=== PATIENT | female | born 1990 | race Caucasian/White ===

== ENCOUNTER 2017-04-14 12:58 | Emergency (ER) | payer OTHER ==
[~2017-04-14] VITALS: Ht 154.9 cm; Wt 59.0 kg
[~2017-04-14 12:58] MED LIST: IBUPROFEN200 M2 PO; NOHOMEMEDICATIONS; TRINATE TABLET1 TAB PO
[2017-04-14 14:10] LABS: ABSOLUTE NEUTROPHILS 6.2 thou/uL (1.4-8.2); BASOPHILS 0.6 % (0.0-2.0); EOSINOPHILS 1.3 % (0.0-3.0); HEMATOCRIT 43.1 % (37.0-47.0); HEMOGLOBIN 14.7 gm/dL (12.0-15.0); LYMPHOCYTES 23.6 % (24.0-44.0); MCV 85.2 fL (80.0-100.0); MONOCYTES 4.8 % (1.0-8.0); PLATELET COUNT 267 thou/uL (150-400); POLYS 69.7 % (36.0-66.0); RBC 5.06 mil/uL (4.20-5.00); RDW 13.6 % (10.5-14.5); WBC 8.8 thou/uL (4.0-11.0)
[2017-04-14 14:12] LABS: MANUAL DIFF NO
[2017-04-14 14:18] LABS: URINE BILIRUBIN NEGATIVE (Negative); URINE BLOOD 2+ (Negative); URINE COLOR YELLOW; URINE GLUCOSE-RANDOM* NEGATIVE (Negative); URINE KETONES NEGATIVE (Negative); URINE NITRITE NEGATIVE (Negative); URINE PROTEIN (DIPSTICK) NEGATIVE (Negative); URINE SPECIFIC GRAVITY <= 1.005 (1.003-1.035); URINE UROBILINOGEN 0.2 E.U./dl (0.2-1.0)
[2017-04-14 14:28] LABS: CASTS None Seen /LPF (None Seen); SQUAMOUS >10 Many /LPF (0-3); URINE RBC 0-2 Rare /HPF (0-2); URINE WBC 0-5 Rare /HPF (0-5)
[2017-04-14 14:29] LABS: BACTERIA 1-9 Few /HPF (None Seen); CRYSTALS None Seen /LPF (None Seen)
[2017-04-14 14:35] LABS: ANION GAP 10 mmol/L (7-16); BUN 14 mg/dL (7-18); CALCIUM 9.3 mg/dL (8.5-10.1); CHLORIDE 102 mmol/L (98-107); CO2 23 mmol/L (21-32); CREATININE 0.8 mg/dL (0.6-1.0); GLUCOSE 91 mg/dL (74-106); POTASSIUM 3.9 mmol/L (3.5-5.1); SODIUM 135 mmol/L (136-145)
[2017-04-14 14:40] LABS: ALBUMIN 3.8 g/dL (3.4-5.0); ALKALINE PHOSPHATASE 44 U/L (46-116); DIRECT BILIRUBIN < 0.1 mg/dL (<0.1-0.3); SGOT 23 U/L (15-37); SGPT 13 U/L (30-65); TOTAL BILIRUBIN 1.4 mg/dL (<0.1-1.0); TOTAL PROTEIN 7.7 g/dL (6.4-8.2)
[2017-04-14 15:49] LABS: AMP/METHAMP Negative (Negative); BARBITURATES Negative (Negative); BENZODIAZEPINES Negative (Negative); COCAINE Negative (Negative); METHADONE Negative (Negative); OPIATES Negative (Negative); PCP Negative (Negative); THC Negative (Negative)
[2017-04-14 16:45] VITALS: BP 120/64
== END 2017-04-14 16:50 | disposition home or self-care (01) ==
LOC: ER 12:58
PROVIDERS: Emergency Medicine
DX: H53.9 Unspecified visual disturbance (principal); K21.9 Gastro-esophageal reflux disease without esophagitis

== ENCOUNTER 2019-01-10 20:36 | Emergency (ER) | payer OTHER ==
[~2019-01-10] VITALS: Ht 154.9 cm; Wt 66.2 kg
[2019-01-10 22:25] VITALS: BP 132/62
== END 2019-01-10 22:25 | disposition home or self-care (01) ==
LOC: ER 20:36
DX: M79.89 Other specified soft tissue disorders (principal)

== ENCOUNTER → 2019-11-20 | Outpatient (CLI) | payer OTHER | LOC: ULTRA 14:55 | DX: N91.2 Amenorrhea, unspecified (principal) ==

== ENCOUNTER → 2020-01-19 | Outpatient (CLI) | payer OTHER | LOC: ULTRA 14:17 | PROVIDERS: ATTEND Nurse Practitioner | DX: N88.8 Other specified noninflammatory disorders of cervix uteri (principal); R93.49 Abnormal radiologic findings on diagnostic imaging of other urinary organs ==

== ENCOUNTER → 2020-10-31 | Outpatient (CLI) | payer OTHER ==
[2020-10-31 15:41] LABS: ABSOLUTE NEUTROPHILS 5.7 thou/uL (1.4-8.2); EOSINOPHILS 0.2 % (0.0-3.0); HEMATOCRIT 42.7 % (37.0-47.0); HEMOGLOBIN 14.4 gm/dL (12.0-15.0); LYMPHOCYTES 27.5 % (24.0-44.0); MCH 29.6 pg (26.0-34.0); MCHC 33.7 g/dL (28.0-37.0); MCV 87.8 fL (80.0-100.0); MONOCYTES 4.6 % (1.0-8.0); PLATELET COUNT 291 thou/uL (150-400); POLYS 66.7 % (36.0-66.0); RBC 4.86 mil/uL (4.20-5.00); WBC 8.5 thou/uL (4.0-11.0)
[2020-10-31 16:08] LABS: ANION GAP 11 mmol/L (7-16); BUN 11 mg/dL (7-18); CALCIUM 9.1 mg/dL (8.5-10.1); CHLORIDE 101 mmol/L (98-107); CHOLESTEROL 212 mg/dL (<200); CO2 28 mmol/L (21-32); CREATININE 0.9 mg/dL (0.6-1.0); GLUCOSE 91 mg/dL (74-106); HDL CHOLESTEROL 67 mg/dL (>40); LDL CHOLESTEROL 122 mg/dL (<100); POTASSIUM 3.5 mmol/L (3.5-5.1); SGOT 14 U/L (15-37); SGPT 22 U/L (30-65); SODIUM 140 mmol/L (136-145); TC:HDL 3.2 Ratio (Not establshd); TOTAL BILIRUBIN 1.6 mg/dL (0.2-1.0); TOTAL PROTEIN 7.8 g/dL (6.4-8.2); TRIGLYCERIDE 116 mg/dL (<150); VLDL 23 mg/dL (<40)
[2020-11-01 00:06] LABS: GLYCOHEMOGLOBIN (HGB A1C) 4.7 % (4.8-5.6)
== END ==
LOC: LAB 15:06
PROVIDERS: ATTEND Family Medicine
DX: Z00.00 Encounter for general adult medical examination without abnormal findings (principal)